=== PATIENT | female | born 1990 | race African-American/Black ===

== ENCOUNTER 2016-12-07 22:48 | Emergency (ER) | payer SELFPAY ==
[2016-12-07] MEDS ORDERED: methylPREDNISolone NA SUCC 125 MG/2 ML VIAL IVPB ONE (22:54)
[2016-12-07] MEDS ORDERED: methylPREDNISolone NA SUCC 125 MG/2 ML VIAL ONE (22:55)
[2016-12-07] MEDS ORDERED: FAMOTIDINE 20 MG/50 ML IVPB 20 MG in PREMIX 50 IVPB ONE (22:55)
--- NOTE | 2016-12-07 22:55 | PDOC ---
History of Present Illness - General History Source: Patient Exam Limitations: No Limitations - History of Present Illness Initial Comments: 12/07/16 23:04 The patient is a 26 year old female with significant past medical history of hyperlipidemia who presents to the ED for allergic reaction prior to arrival. Patient reports she has NKDA and the last thing she ate was shrimp when she subsequently developed the diffuse rash and chest tightness. States she has eaten shrimp in the past with no difficulties and believe it is related to the detergent her mom used to clean today. Denies SOB, throat tightness, tongue swelling, or mouth swelling. The patient denies fever, chills, cough, chest pain, and palpitations. The patient denies abdominal pain, nausea, vomiting, and diarrhea. Allergies: NKDA Social History: No alcohol, tobacco, or drug use reported. Past Surgical History: None reported PCP: Dr. Jose Kuhn <Prisca Foster - Last Filed: 12/07/16 23:46> - General History Source: Patient <Willy Kasper - Last Filed: 12/08/16 01:00> - General Stated Complaint: ALLERGIC REACTION Time Seen by Provider: 12/07/16 22:53 Past History <Prisca Foster - Last Filed: 12/07/16 23:46> - Past Medical History Hypercholesterolemia: Yes Thyroid Disease: (denies) - Immunization History Immunization Up to Date: Yes - Psycho/Social/Smoking Cessation Hx Anxiety: No Suicidal Ideation: No Smoking History: Never smoked Have you smoked in the past 12 months: No Hx Alcohol Use: No Substance Use Type: None Hx Substance Use Treatment: No <Willy Kasper - Last Filed: 12/08/16 01:00> - Past Medical History Allergies/Adverse Reactions: Allergies Allergy/AdvReac Type Severity Reaction Status Date / Time No Known Allergies Allergy Verified 12/17/14 13:55 Home Medications: Ambulatory Orders Multivitamins [Tab-A-Vit -] 1 tab PO DAILY 09/23/14 Diphenhydramine HCl [Benadryl Capsules -] 25 mg PO TID #30 capsule 12/08/16 Loratadine [Claritin] 10 mg PO DAILY #30 tablet 12/08/16 Methylprednisolone [Medrol Dose Cory] 4 mg PO ASDIR #21 tablet 12/08/16 Review of Systems - Review of Systems Able to Perform ROS?: Yes Comments:: 12/07/16 23:04 CONSTITUTIONAL: Absent: fever, no chills, no fatigue EYES: Absent: visual changes ENT: Absent: ear pain, no sore throat CARDIOVASCULAR: Absent: chest pain, no palpitations RESPIRATORY: +chest tightness Absent: cough, no SOB GI: Absent: abdominal pain, no nausea, no vomiting, no constipation, no diarrhea GENITOURINARY: Absent: dysuria, no frequency, no hematuria MUSCULOSKELETAL: Absent: back pain, no arthralgia, no myalgia SKIN: +diffuse rash NEURO: Absent: headache <KristinPrisca - Last Filed: 12/07/16 23:46> *Physical Exam - Vital Signs Last Vital Signs Temp Pulse Resp BP Pulse Ox 122 H 24 138/90 99 12/07/16 22:54 12/07/16 22:54 12/07/16 22:54 12/07/16 22:54 - Physical Exam Comments: 12/07/16 23:04 GENERAL: Well-appearing, well-nourished. Mild distress. HEENT: Normocephalic, atraumatic. PERRL, EOM intact. Oropharynx is clear. No tongue swelling. No drooling. No hot potato voice. CARDIOVASCULAR: Tachycardia. Regular rhythm. Normal S1, S2. PULMONARY: No respiratory distress. No conversational dyspnea. No retractions. Clear to auscultation bilaterally. No stridor. ABDOMEN: Soft, non-distended, non-tender. EXTREMITIES: Normal ROM in all four extremities. No gross deformities. No cyanosis. No clubbing. SKIN: Warm, dry. Diffuse urticaria throughout body face, extremities x4, torso, and back. NEUROLOGICAL: No focal neurological deficits. <KristinPrisca - Last Filed: 12/07/16 23:46> ED Treatment Course - Medications Given in the ED: ED Medications Discontinued Medications Generic Name Dose Route Start Last Admin Trade Name Freq PRN Reason Stop Dose Admin Diphenhydramine HCl 25 mg 12/07/16 22:54 12/07/16 23:00 Benadryl Injection - IVPB 12/07/16 22:55 25 mg ONCE ONE Administration Methylprednisolone Sodium Succinate 125 mg 12/07/16 22:54 12/07/16 23:00 Solu-Medrol - IVPB 12/07/16 22:55 125 mg ONCE ONE Administration <Pricsa Foster - Last Filed: 12/07/16 23:46> - LABORATORY CBC & Chemistry Diagram: 12/08/16 00:13 12/08/16 00:13 <Willy Kasper - Last Filed: 12/08/16 01:00> Medical Decision Making - Medical Decision Making 12/08/16 00:59 Dr. Kasper: The scribe's documentation has been prepared under my direction and personally reviewed by me in its entirery. I confirm that the note above accurately reflects all work, treatment, procedures, and medical decision making performed by me. patient feels better, after treatment here in the department. Patient to be discharged. Advised to be tested for ALLERGIES after completion of medication. <Willy Kasper - Last Filed: 12/08/16 01:00> *DC/Admit/Observation/Transfer - Attestations Scribe Attestion: 12/07/16 23:04 Documentation prepared by Prisca Foster, acting as medical administrative specialist for Willy Kasper MD/DO. <Prisca Foster - Last Filed: 12/07/16 23:46> - Discharge Dispostion Admit: No <Willy Kasper - Last Filed: 12/08/16 01:00> Diagnosis at time of Disposition: Allergic reaction Qualifiers: Encounter type: initial encounter Qualified Code(s): T78.40XA - Allergy, unspecified, initial encounter - Discharge Dispostion Disposition: HOME Condition at time of disposition: Improved - Referrals Referrals: Jose Kuhn MD [Primary Care Provider] - - Patient Instructions Printed Discharge Instructions: DI for General Allergic Reactions - Post Discharge Activity Work/School Note: Back to Work
[2016-12-07 23:03] VITALS: BMI 24.3
[2016-12-07] MEDS ORDERED: FAMOTIDINE 20 MG/50 ML IVPB 50 ML IVPB ONE (23:03)
[2016-12-08 00:18] LABS: EOSINOPHIL 1.4 % (0-4.5); MCH 30.6 pg (25.7-33.7); MCHC 33.4 g/dl (32.0-36.0); MEAN CELL VOLUME 91.7 fl (80-96); MEAN PLT VOLUME 11.4 fl (7.5-11.1); NEUTROPHILS 52.2 % (42.8-82.8); PLATELET COUNT 160 K/MM3 (134-434); RDW 14.3 % (11.6-15.6); WHITE BLOOD COUNT 4.2 K/mm3 (4.0-10.0)
[2016-12-08 00:46] LABS: ALBUMIN 3.5 g/dl (3.4-5.0); ALK PHOS 41 U/L (45-117); ANION GAP 11 (8-16); BILIRUBIN,TOTAL 0.2 mg/dL (0.2-1.0); CALCIUM 8.8 mg/dL (8.5-10.1); CO2 23 mmol/L (21-32); COCKROFT - GAULT 108.5195; CREATININE 0.9 mg/dL (0.55-1.02); GLUCOSE,RANDOM 105 mg/dL (74-106); SGOT/AST 10 U/L (15-37); SGPT/ALT 15 U/L (12-78); TOT PROT 6.5 g/dl (6.4-8.2)
[2016-12-08 01:16] VITALS: BP 116/74; PULSE 70
== END 2016-12-08 01:16 | disposition home or self-care (01) ==
LOC: JER 22:48
PROC: 3E033GC Introduction of Other Therapeutic Substance into Peripheral Vein, Percutaneous Approach (ICD-10-PCS; principal; 2016-12-07)
PROC: 3E0333Z Introduction of Anti-inflammatory into Peripheral Vein, Percutaneous Approach (ICD-10-PCS; 2016-12-07)
PROC: 3E033GC Introduction of Other Therapeutic Substance into Peripheral Vein, Percutaneous Approach (ICD-10-PCS; 2016-12-07)
DX: T78.40XA Allergy, unspecified, initial encounter (principal)
CPT/HCPCS: 36415; 80053; 84703; 85025; 99282-25

== ENCOUNTER 2021-03-29 06:00 | Observation (INO) | payer OTHER ==
[2021-03-29] MEDS ORDERED: ACETAMINOPHEN INJECTION 100 ML IVPB ONE (07:29)
[2021-03-29] MEDS ORDERED: DEXTROSE 5%-LACTATED RINGERS 500 ML IV SCH ×2 (07:30→08:30)
[2021-03-29] MEDS ORDERED: ACETAMINOPHEN 1000 MG/100 ML VIAL (NON FORMULARY) IVPB ONE (08:30)
[2021-03-29 08:59] LABS: PH,URINE 7.5 (5.0-8.0); URINE APPEARANCE CLEAR; URINE BILIRUBIN NEGATIVE (NEGATIVE); URINE COLOR YELLOW; URINE GLUCOSE (UA) NEGATIVE (NEGATIVE); URINE KETONE NEGATIVE (NEGATIVE); URINE LEUK ESTERASE NEGATIVE (NEGATIVE); URINE NITRITE NEGATIVE (NEGATIVE); URINE PROTEIN NEGATIVE (NEGATIVE); URINE UROBILINOGEN 0.2 mg/dL (0.2-1.0)
[2021-03-29 09:04] LABS: INR 0.95 (0.83-1.09); PROTHROMBIN TIME (PATIENT) 11.5 SEC (9.7-13.0)
[2021-03-29 09:06] LABS: HEMATOCRIT 34.7 % (32.4-45.2); HEMOGLOBIN 11.9 GM/dL (10.7-15.3); MCH 32.4 pg (25.7-33.7); MCHC 34.4 g/dl (32.0-36.0); MEAN CELL VOLUME 94.2 fl (80-96); PLATELET COUNT 140 10^3/uL (134-434); RBC 3.68 M/mm3 (3.60-5.2); RDW 14.3 % (11.6-15.6); WHITE BLOOD COUNT 9.1 K/mm3 (4.0-10.0)
[2021-03-29 09:07] LABS: ACTIVATED PTT 26.4 SECONDS (25.2-36.5)
[2021-03-29 09:23] LABS: AMYLASE 51 U/L (25-115); LIPASE 83 U/L (73-393)
[2021-03-29 09:25] LABS: CALCIUM 8.9 mg/dL (8.5-10.1)
[2021-03-29 09:26] LABS: ALBUMIN 2.5 g/dl (3.4-5.0); BLOOD UREA NITROGEN 5.4 mg/dL (7-18)
[2021-03-29 09:28] LABS: URIC ACID 3.1 mg/dL (2.6-7.2)
[2021-03-29 09:29] LABS: CREATININE 0.5 mg/dL (0.55-1.3)
[2021-03-29 09:30] LABS: BILIRUBIN,TOTAL 0.5 mg/dL (0.2-1); TOT PROT 6.2 g/dl (6.4-8.2)
[2021-03-29 23:58] VITALS: BP 126/72; PULSE 84; TEMP 98.1
== END 2021-03-29 20:15 | disposition home or self-care (01) ==
LOC: JDEL 06:00 → JLDR 14:00
PROVIDERS: ADMIT Obstetrics & Gynecology; ATTEND Obstetrics & Gynecology
PROC: 3E033NZ Introduction of Analgesics, Hypnotics, Sedatives into Peripheral Vein, Percutaneous Approach (ICD-10-PCS; principal; 2021-03-29)
PROC: 3E0337Z Introduction of Electrolytic and Water Balance Substance into Peripheral Vein, Percutaneous Approach (ICD-10-PCS; 2021-03-29)
DX: O26.892 Other specified pregnancy related conditions, second trimester (principal); Z3A.26 26 weeks gestation of pregnancy; O09.812 Supervision of pregnancy resulting from assisted reproductive technology, second trimester; R10.9 Unspecified abdominal pain; Z91.013 Allergy to seafood
CPT/HCPCS: 36415; 74181-TC; 76700-TC; 80053; 81003; 82150; 83690; 84550; 85027; 85610; 85730; 87086; G0378; J0131

== ENCOUNTER 2021-07-02 13:40 | Inpatient (IN) | payer OTHER ==
[2021-07-02] MEDS ORDERED: CITRIC ACID/SODIUM CITRATE 30 ML UNIT-DOSE CUP PO ONE (14:00)
[2021-07-02] MEDS ORDERED: ELECTROLYTE-148 SOLN 500 ML IV ONE (14:00)
[2021-07-02] MEDS ORDERED: ELECTROLYTE-148 SOLN 500 ML IV SCH (14:30)
[2021-07-02 14:45] VITALS: BMI 33.9
[2021-07-02] MEDS ORDERED: ONDANSETRON 4 MG/2 ML VIAL IVPUSH PRN (15:33)
[2021-07-02] MEDS ORDERED: PHENYLEPHRINE HCL 10 MG/1 ML SINGLE DOSE VIAL ONE (16:27)
[2021-07-02] MEDS ORDERED: ceFAZolin SODIUM 1 GM VIAL ONE (16:27)
[2021-07-02] MEDS ORDERED: morphine SULFATE/PF 1 MG/2 ML (2cc Syringe - QUVA) ONE (16:27)
[2021-07-02] MEDS ORDERED: OXYTOCIN 10 UNITS/ML VIAL ONE ×2 (16:27→17:03)
[2021-07-02] MEDS ORDERED: MIDAZOLAM HCL 2 MG/2 ML SINGLE DOSE VIAL ONE ×2 (17:23→17:44)
[2021-07-02 17:50] LABS: CORD BASE EXCESS -4.9 mmol/L (0-2); CORD HCO3 19.8 mmHg (20-29); CORD PCO2 35.7 mmHg (30-78); CORD pH 7.361 (7.14-7.44)
[2021-07-02] MEDS ORDERED: IBUPROFEN 600 MG TABLET (FP) PO PRN (17:50)
[2021-07-02] MEDS ORDERED: BENZOCAINE 20% 57 GM BOTTLE TP PRN (17:50)
[2021-07-02] MEDS ORDERED: WITCH HAZEL 50% (TUCKS) 40 PAD/JAR PAD TP PRN (17:50)
[2021-07-02] MEDS ORDERED: BENZOCAINE 28 GM HEMORRHOIDAL OINTMENT TP PRN (17:50)
[2021-07-02] MEDS ORDERED: ACETAMINOPHEN 325 MG TABLET (FP) PO PRN (17:50)
[2021-07-02] MEDS ORDERED: IBUPROFEN 800 MG/8 ML IJ IVPB PRN (17:50)
[2021-07-02] MEDS ORDERED: METHYLERGONOVINE MALEATE 0.2 MG/1 ML AMP IM PRN (17:50)
[2021-07-02 17:51] LABS: CORD HCO3 24.8 mmHg (20-29); CORD PCO2 54.7 mmHg (30-78); CORD pH 7.275 (7.14-7.44)
[2021-07-02] MEDS ORDERED: OXYTOCIN 20 UNITS in 0.9% NS 20 UNIT/1,000 ML INFUS.BAG IV SCH (18:00)
[2021-07-02] MEDS ORDERED: OXYTOCIN 20 UNITS in 0.9% NS 20 UNIT/1,000 ML INFUS.BAG IV ONE (18:34)
[2021-07-02] MEDS ORDERED: IBUPROFEN 800 MG/8 ML IJ IVPB ONE (19:32)
[2021-07-03] MEDS: IBUPROFEN 600 MG TABLET (FP) PO PRN ×3 (00:26→15:11)
[2021-07-03] MEDS: SIMETHICONE 80 MG TAB.CHEW (FP) PO PRN ×3 (00:27→21:45)
[2021-07-03] MEDS ORDERED: oxyCODONE HCL 5 MG TABLET PO PRN (05:50)
[2021-07-03 07:29] LABS: BASO % 0.6 % (0-2.0); EOS % 0.5 % (0-4.5); HEMATOCRIT 31.3 % (32.4-45.2); HEMOGLOBIN 10.6 GM/dL (10.7-15.3); LYMPH % 17.1 % (8-40); MCH 30.8 pg (25.7-33.7); MCHC 33.7 g/dl (32.0-36.0); MEAN CELL VOLUME 91.2 fl (80-96); MEAN PLT VOLUME 11.3 fl (7.5-11.1); NEUT % 71.8 % (42.8-82.8); PLATELET COUNT 110 10^3/uL (134-434); RBC 3.44 M/mm3 (3.60-5.2); RDW 15.1 % (11.6-15.6); WHITE BLOOD COUNT 7.3 K/mm3 (4.0-10.0)
[2021-07-03] MEDS: ACETAMINOPHEN 325 MG TABLET (FP) PO PRN ×2 (09:22→15:12)
[2021-07-03] MEDS ORDERED: BISACODYL 10 MG SUPP.RECT RC PRN (17:50)
[2021-07-03] MEDS: oxyCODONE HCL 5 MG TABLET PO PRN (21:45)
[2021-07-04] MEDS: oxyCODONE HCL 5 MG TABLET PO PRN (03:10)
[2021-07-04] MEDS: SIMETHICONE 80 MG TAB.CHEW (FP) PO PRN ×3 (03:11→23:46)
[2021-07-04] MEDS: IBUPROFEN 600 MG TABLET (FP) PO PRN ×3 (05:52→23:46)
[2021-07-04] MEDS: ACETAMINOPHEN 325 MG TABLET (FP) PO PRN (13:02)
[2021-07-05 07:26] LABS: BASO % 0.4 % (0-2.0); HEMATOCRIT 29.8 % (32.4-45.2); LYMPH % 21.3 % (8-40); MCH 30.6 pg (25.7-33.7); MCHC 33.6 g/dl (32.0-36.0); MEAN CELL VOLUME 91.1 fl (80-96); MEAN PLT VOLUME 11.7 fl (7.5-11.1); NEUT % 66.3 % (42.8-82.8); PLATELET COUNT 145 10^3/uL (134-434); RBC 3.27 M/mm3 (3.60-5.2); RDW 15.1 % (11.6-15.6); WHITE BLOOD COUNT 7.3 K/mm3 (4.0-10.0)
[2021-07-05 10:30] VITALS: BP 127/91; PULSE 91; TEMP 98
[2021-07-05] MEDS: SIMETHICONE 80 MG TAB.CHEW (FP) PO PRN (12:46)
[2021-07-05] MEDS: IBUPROFEN 600 MG TABLET (FP) PO PRN (12:46)
== END 2021-07-05 14:30 | disposition home or self-care (01) | DRG 788 ==
LOC: JLDR 13:40 → J3W 20:15
PROVIDERS: ADMIT Obstetrics & Gynecology; ATTEND Obstetrics & Gynecology
PROC: 10D00Z1 Extraction of Products of Conception, Low, Open Approach (ICD-10-PCS; principal; 2021-07-02)
DX: O82 Encounter for cesarean delivery without indication (principal); O99.02 Anemia complicating childbirth; Z3A.40 40 weeks gestation of pregnancy; Z37.0 Single live birth
CPT/HCPCS: 36415; 36600; 82803; 85025; 88307-TC

== ENCOUNTER 2024-01-01 06:48 | Inpatient (IN) | payer OTHER ==
[2024-01-01] MEDS: ELECTROLYTE-148 SOLN 500 ML IV ONE (07:00)
[2024-01-01] MEDS ORDERED: OXYTOCIN 30 UNITS in 0.9% NS 30 UNIT/500 ML INFUS.BAG IVPB ONE (07:28)
[2024-01-01] MEDS ORDERED: ONDANSETRON 4 MG/2 ML VIAL ONE (07:30)
[2024-01-01] MEDS ORDERED: FENTANYL CITRATE/PF 50 MCG/ML VIAL ONE (07:30)
[2024-01-01] MEDS ORDERED: morphine SULFATE/PF 1 MG/2 ML (2cc Syringe - QUVA) ONE (07:30)
[2024-01-01] MEDS ORDERED: DEXAMETHASONE SOD PHOSPHATE 4 MG/1 ML VIAL ONE (07:30)
[2024-01-01] MEDS ORDERED: KETOROLAC TROMETHAMINE 30 MG/1 ML VIAL ONE (07:30)
[2024-01-01] MEDS ORDERED: ceFAZolin SODIUM 1 GM VIAL ONE (07:30)
[2024-01-01] MEDS ORDERED: IBUPROFEN 600 MG TABLET (FP) PO PRN (07:36)
[2024-01-01] MEDS ORDERED: ONDANSETRON 4 MG/2 ML VIAL IVPUSH PRN (07:37)
[2024-01-01] MEDS ORDERED: ACETAMINOPHEN 325 MG TABLET (FP) PO PRN (07:37)
[2024-01-01] MEDS: CITRIC ACID/SODIUM CITRATE 30 ML UNIT-DOSE CUP PO ONE (08:00)
[2024-01-01 08:20] VITALS: BMI 32.1
[2024-01-01] MEDS: ELECTROLYTE-148 SOLN 1,000 ML IV SCH (09:30)
[2024-01-01] MEDS ORDERED: WITCH HAZEL 50% (TUCKS) 40 PAD/JAR PAD TP PRN (10:17)
[2024-01-01] MEDS ORDERED: BENZOCAINE 20% 57 GM BOTTLE TP PRN (10:17)
[2024-01-01] MEDS ORDERED: METHYLERGONOVINE MALEATE 0.2 MG/1 ML AMP IM PRN (10:17)
[2024-01-01 11:02] LABS: CORD HCO3 25.9 mmHg (20-29); CORD PCO2 65.8 mmHg (30-78); CORD pH 7.213 (7.14-7.44)
[2024-01-01 11:04] LABS: CORD BASE EXCESS -5.5 mmol/L (0-2); CORD HCO3 21.7 mmHg (20-29); CORD PCO2 48.8 mmHg (30-78); CORD pH 7.266 (7.14-7.44)
[2024-01-01] MEDS ORDERED: OXYTOCIN 20 UNITS in 0.9% NS 20 UNIT/1,000 ML INFUS.BAG IV ONE (12:17)
[2024-01-01] MEDS: OXYTOCIN 20 UNITS in 0.9% NS 20 UNIT/1,000 ML INFUS.BAG IV SCH (12:20)
[2024-01-01] MEDS: IBUPROFEN 800 MG/8 ML IJ IVPB PRN (13:12)
[2024-01-01] MEDS ORDERED: oxyCODONE HCL 5 MG TABLET PO PRN (22:17)
[2024-01-02] MEDS: IBUPROFEN 600 MG TABLET (FP) PO PRN (04:44)
[2024-01-02] MEDS: SIMETHICONE 80 MG TAB.CHEW (FP) PO PRN (04:44)
[2024-01-02 07:39] LABS: BASO % 0.3 % (0-2.0); EOS % 0.2 % (0-4.5); HEMATOCRIT 32.4 % (32.4-45.2); HEMOGLOBIN 10.6 GM/dL (10.7-15.3); LYMPH % 16.7 % (8-40); MCHC 32.9 g/dl (32.0-36.0); MEAN CELL VOLUME 88.3 fl (80-96); MEAN PLT VOLUME 11.3 fl (7.5-11.1); MONO % 8.8 % (3.8-10.2); PLATELET COUNT 132 10^3/uL (134-434); RBC 3.67 M/mm3 (3.60-5.2); RDW 16.2 % (11.6-15.6); WHITE BLOOD COUNT 11.4 K/mm3 (4.0-10.0)
[2024-01-02] MEDS: ENOXAPARIN NA (PORCINE) 40 MG/0.4 ML DISP.SYRIN SQ SCH (09:52)
[2024-01-02] MEDS: PRENATAL VITAMINS W/ FOLIC ACID TABLET (FP) PO SCH (09:52)
[2024-01-02] MEDS ORDERED: BISACODYL 10 MG SUPP.RECT RC PRN (10:17)
[2024-01-02] MEDS: SENNOSIDES/DOCUSATE COMBO (SENNA PLUS) TABLET (UD) PO PRN (22:11)
[2024-01-02 23:47] VITALS: RESP 18
[2024-01-03] MEDS: oxyCODONE HCL 5 MG TABLET PO PRN (06:34)
[2024-01-03] MEDS ORDERED: IBUPROFEN 600 MG TABLET (FP) PO ONE ×2 (19:49→20:00)
[2024-01-03] MEDS: ACETAMINOPHEN 325 MG TABLET (FP) PO PRN (21:14)
[2024-01-04 06:36] LABS: BASO % 0.5 % (0-2.0); EOS % 2.5 % (0-4.5); HEMATOCRIT 31.2 % (32.4-45.2); HEMOGLOBIN 10.2 GM/dL (10.7-15.3); LYMPH % 30.5 % (8-40); MCH 29.1 pg (25.7-33.7); MCHC 32.6 g/dl (32.0-36.0); MEAN CELL VOLUME 89.2 fl (80-96); MEAN PLT VOLUME 10.8 fl (7.5-11.1); MONO % 8.5 % (3.8-10.2); PLATELET COUNT 149 10^3/uL (134-434); RDW 16.3 % (11.6-15.6); WHITE BLOOD COUNT 5.6 K/mm3 (4.0-10.0)
[2024-01-04 08:27] VITALS: BP 119/74; PULSE 79; TEMP 98.3
== END 2024-01-04 13:00 | disposition home or self-care (01) | DRG 788 ==
LOC: JLDR 06:48 → J3W 12:25
PROVIDERS: ADMIT Obstetrics & Gynecology; ATTEND Obstetrics & Gynecology
PROC: 10D00Z1 Extraction of Products of Conception, Low, Open Approach (ICD-10-PCS; principal; 2024-01-01)
DX: O48.0 Post-term pregnancy (principal); O34.219 Maternal care for unspecified type scar from previous cesarean delivery; O99.824 Streptococcus B carrier state complicating childbirth; Z3A.40 40 weeks gestation of pregnancy; Z37.0 Single live birth
CPT/HCPCS: 36415; 36600; 59409; 82803; 85025; 86850; 86900; 86901; 88307-TC; 94010